=== PATIENT | female | born 1955 | race Caucasian/White ===

== ENCOUNTER 2022-02-27 15:32 | Outpatient (CLI) | payer MEDICARE, OTHER ==
--- NOTE | 2022-02-28 21:55 | XRAY Report ---
PROCEDURE: Wrist 3 View LT INDICATIONS: PAIN IN LEFT WRIST TECHNIQUE: 3 views of the wrist were acquired. COMPARISON: None available. FINDINGS: Bones: Overlying casting material obscures fine bony detail. There is mild lucency along the base of the ulnar styloid process fracture cannot be excluded. No suspicious bony lesions. Mild triscaphe and first CMC joint space narrowing with particular osteophyte formation. Soft tissues: No suspicious soft tissue calcifications. IMPRESSION: Lucencies seen on the oblique view along the base of the ulnar styloid process and ulnar styloid proc ess fracture cannot be excluded. Recommend correlation to point tenderness. If symptoms persist, foll ow-up radiographs and/or CT or MRI may be helpful for further evaluation. Reviewed by: ANGIE Thao on 02/28/2022 9:54 PM PST Approved by: Feng Shahid MD on 02/28/2022 9:54 PM [facility] Station ID: [id number]
== END 2022-02-27 15:33 | disposition home or self-care (01) ==
LOC: DI 15:32
PROVIDERS: ATTEND Physician Assistant
DX: M25.532 Pain in left wrist (principal)